=== PATIENT | female | born 1950 | race Caucasian/White ===

== ENCOUNTER 2018-11-13 08:56 | Emergency (ER) | payer BC, MEDICARE ==
[~2018-11-13] VITALS: Ht 172.7 cm; Wt 77.1 kg
[2018-11-13] MEDS ORDERED: LEVSOD25 PO (09:12)
[2018-11-13] MEDS ORDERED: MELATONIN5 M1 PO (09:12)
[2018-11-13] MEDS ORDERED: VICODIN 5-3001 EACH PO (09:13)
[2018-11-13] MEDS ORDERED: DIVA250EC PO (09:13)
[2018-11-13] MEDS ORDERED: BUTRANS1 EAC1 TD (09:13)
== END 2018-11-13 10:20 | disposition home or self-care (01) ==
LOC: ER 08:56
DX: S16.1XXA Strain of muscle, fascia and tendon at neck level, initial encounter (principal); W18.30XA Fall on same level, unspecified, initial encounter; Z79.899 Other long term (current) drug therapy; Z79.891 Long term (current) use of opiate analgesic; J45.909 Unspecified asthma, uncomplicated
CPT/HCPCS: 72040; 72100; 99283-25